=== PATIENT | female | born 1940 | race African-American/Black ===

== ENCOUNTER → 2017-01-06 | Outpatient (CLI) | payer OTHER ==
--- NOTE | 2017-01-06 12:19 | KCIC ---
EXAM: Lumbar spine, 5 views. HISTORY: Pain. COMPARISON: None. FINDINGS: Frontal, lateral, bilateral oblique and coned sacral views of the lumbar spine are obtained. There is lumbar hyperlordosis. There is grade 1 anterolisthesis of L4 on L5 and L5 on S1. There is levoscoliosis centered at L2. There is degenerative endplate remodeling with disc space narrowing and osteophytosis primarily along the right aspect of L2-L3. This corresponds with the level of maximum scoliotic concavity. There is facet arthropathy predominantly at the lumbosacral junction. There is suspected bone demineralization. There are cholecystectomy clips. IMPRESSION: 1. Degenerative change throughout the lumbar spine, primarily along the right aspect of L2-L3 and the lumbosacral junction. 2. Lumbar levoscoliosis, hyperlordosis and slight anterolisthesis of L4 on L5 and L5-S1. Electronically signed by: Chuyita Duque MD (01/06/2017 12:15 PM) [id number]
== END | disposition home or self-care (01) ==
LOC: KCIC 11:07
PROVIDERS: ATTEND Family Medicine
DX: M51.36 Other intervertebral disc degeneration, lumbar region (principal); M41.87 Other forms of scoliosis, lumbosacral region; R26.81 Unsteadiness on feet; Z86.73 Personal history of transient ischemic attack (TIA), and cerebral infarction without residual deficits
CPT/HCPCS: 72110

== ENCOUNTER → 2017-02-03 | Outpatient (CLI) | payer OTHER ==
--- NOTE | 2017-02-03 11:11 | KCIC ---
Bilateral lower extremity venous Doppler ultrasound Indication: Bilateral leg edema, left greater than right. Technique: Color Doppler, grayscale, duplex, spectral waveform analysis is used to evaluate the bilateral lower extremity deep venous system, including the common femoral vein, superficial femoral vein, popliteal vein, tibioperoneal trunk and calf veins. Findings: No evidence of deep venous thrombosis. Normal response to augmentation, normal compressibility and normal phasicity is demonstrated. Bilateral inguinal lymph nodes are identified. These measure up to 3 cm in diameter on the right. Fluid collection identified in the left popliteal fossa likely Guy's cyst, measures 4.8 cm long axis. CONCLUSION: No evidence of right or left lower extremity deep venous thrombosis. Electronically signed by: David Bingham MD (02/03/2017 11:08 AM) [id number]
== END | disposition home or self-care (01) ==
LOC: KCIC US 08:12
PROVIDERS: ATTEND Family Medicine
DX: R60.0 Localized edema (principal); R59.0 Localized enlarged lymph nodes
CPT/HCPCS: 93970

== ENCOUNTER → 2017-02-11 | Outpatient (CLI) | payer OTHER ==
--- NOTE | 2017-02-11 14:20 | KCIC ---
MRI Brain without contrast History: Head injury, struck left side of head on the door about 6 weeks ago, pain left side of head Technique: Multiplanar, multisequential noncontrast MR imaging was performed of the brain. Contrast: None Comparison: 07/30/2015 Findings: There is mild motion.There is no evidence of an acute infarct or cytotoxic edema. The ventricles, sulci, and cisterns are within normal limits in size and configuration. There is no significant midline shift, mass effect, or focal abnormal extra-axial fluid collection. There is again multifocal [id number] T2 and FLAIR hyperintense signal abnormality of the supratentorial white matter in a bilateral distribution. Findings are greatest of frontal parietal lobes. Findings are questionably very slightly greater near the right frontal horn. 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 There is preservation of the major intracranial flow-voids at the skull base. The mastoid air cells are aerated. The cerebellar tonsils are normal in location. There is no significant abnormality of the pineal gland or pituitary gland. There is patchy mild bilateral ethmoid air cell mucosal thickening. There is preserved marrow signal of the clivus. There is multilevel degenerative disc disease of visualized superior cervical spine. Impression: 1. There is no evidence of recent infarct, intracranial mass effect, or fluid collection. There is again multifocal jtdx-hq-lontymal T2 and FLAIR hyperintense abnormality of the supratentorial white matter, nonspecific findings most commonly due to chronic microvascular ischemic disease in a patient this age. There is also old lacunar infarct of the right basal ganglia as seen previously. Electronically signed by: Ke Cortez MD (02/11/2017 2:17 PM) [id number]
== END | disposition home or self-care (01) ==
LOC: KCIC MRI 13:09
PROVIDERS: ATTEND Family Medicine
DX: I67.82 Cerebral ischemia (principal)
CPT/HCPCS: 70551

== ENCOUNTER → 2017-03-05 | Outpatient (CLI) | payer OTHER ==
--- NOTE | 2017-03-05 12:10 | KCIC ---
DATE: 03/05/2017 EXAM: MAMMO CRISTINA SCREENING BILATERAL HISTORY: Routine screening COMPARISON: None available The breast parenchyma shows scattered fibroglandular densities. Breast parenchyma level B. FINDINGS: 2-D and 3-D tomosynthesis imaging was performed in CC and MLO projections. There is a small benign-appearing intramammary lymph node in the axillary tail region of the right breast. No suspicious breast densities are seen. Benign type calcifications are present in both breasts. No suspicious microcalcifications are evident. IMPRESSION: There is no mammographic evidence of malignancy in either breast. BI-RADS CATEGORY: 2 BENIGN FINDING(S) RECOMMENDED FOLLOW-UP: 12M 12 MONTH FOLLOW-UP PQRS compliance statement: Patient information was entered into a reminder system with a target due date for the next mammogram. Mammography is a sensitive method for finding small breast cancers, but it does not detect them all and is not a substitute for careful clinical examination. A negative mammogram does not negate a clinically suspicious finding and should not result in delay in biopsying a clinically suspicious abnormality. "Our facility is accredited by the [employer] Mammography Program."
== END | disposition home or self-care (01) ==
LOC: KCIC MAMMO 10:06
PROVIDERS: ATTEND Family Medicine
DX: Z12.31 Encounter for screening mammogram for malignant neoplasm of breast (principal)
CPT/HCPCS: 77063; G0202; 77067

== ENCOUNTER → 2017-04-08 | Outpatient (CLI) | payer OTHER ==
--- NOTE | 2017-04-08 11:32 | KCIC ---
EXAM: Pelvic sonogram; left foot sonogram. HISTORY: Pelvic pain. Left posterior foot lump. TECHNIQUE: Transabdominal and transvaginal sonographic imaging of the pelvis was performed. Sonographic imaging of the left foot at the site of palpable concern was performed. COMPARISON: None. FINDINGS: Pelvis: The uterus measures 5.0 x 2.5 x 4.8 cm. The endometrium is thickened for the postmenopausal status of the patient, measuring 9 mm. There is a small amount of fluid within the endometrial cavity. There are uterine parenchymal calcifications. No uterine mass is seen. The ovaries are not seen. There is a small amount of pelvic free fluid. Left foot: There is a 3 x 2 mm hypoechoic lesion within the posterior left foot soft tissues at the site of palpable concern. This demonstrates no internal vascularity. IMPRESSION: 1. Thickened endometrium for the postmenopausal status of the patient and small amount of nonspecific endometrial fluid. Tissue sampling may be obtained for definitive diagnosis. 2. Nonvisualization of the ovaries. 3. Small amount of nonspecific pelvic free fluid. 4. Uterine parenchymal calcifications. No mass is seen. 5. 3 mm hypoechoic lesion within the posterior left foot at the site of palpable concern. If there has been a history of prior foot trauma, this may be due to a tiny hematoma. Continued follow-up of palpable abnormalities is recommended. Electronically signed by: Chuyita Duque MD (04/08/2017 11:29 AM) [id number]
== END | disposition home or self-care (01) ==
LOC: KCIC US 08:43
PROVIDERS: ATTEND Family Medicine
DX: R10.2 Pelvic and perineal pain (principal); R93.8 Abnormal findings on diagnostic imaging of other specified body structures; M79.672 Pain in left foot; Z78.0 Asymptomatic menopausal state
CPT/HCPCS: 76830; 76856; 76881